=== PATIENT | female | born 1965 | race Caucasian/White ===

== ENCOUNTER 2017-03-28 14:00 | Emergency (ER) | payer OTHER ==
[~2017-03-28] VITALS: Ht 157.5 cm; Wt 106.9 kg
[~2017-03-28 14:00] MED LIST: ACCOLATE20 MG PO; ALBUTEROL17 GM IH; AMBIEN10 M1 PO; AMBIEN10 MG PO; ASPIR-LOW81 MG PO; ASPIRIN81 M1 PO; ATORVASTATIN CA80 MG PO; ATROVENT 00.5 MG/2.5 IH; BUDEPRION XL150 MG PO; CALCIUM600 MG PO; CALTRATE 600600 MG PO; CLONAZEPAM1 MG PO; CLONIDINE HCL0.2 MG PO; CYANOCOBALAM1000 MCG PO; CYMBALTA30 MG PO; CYMBALTA60 MG PO; DILTIAZEM 24HR180 MG PO; DIOVAN HCT 3201 EAC1 PO; DUONEB3 ML; FISH OIL 1,001000 M1 PO; FLAX SEED OIL1 EACH PO; FLONASE16 G1 BOTH NARES; FUROSEMIDE20 MG PO; GABAPENTIN100 MG PO; GUAIFENESIN400 MG PO; K-DUR20 MEQ PO; KLONOPIN0.5 M1 PO; KLOR-CON M2020 MEQ PO; LASIX10 MG PO; LEVOTHROID125 MCG PO; LEVOTHYROXINE125 MCG PO; LIPITOR20 MG PO; MAGNESIUM OXID400 MG PO; MELOXICAM15 MG PO; MUCUS RELIEF400 MG PO; MULTIVITAMIN1 EAC2 PO; MYSOLINE50 MG PO; OXYCODONE HCL5 MG PO; PREDNISONE10 MG PO; PRIMIDONE50 MG PO; PROAIR HFA8.5 GM IH; PROBIOTIC1 EAC1 PO; PROTONIX40 MG PO; PROVENTIL,2.5 MG/3 M IH; PYCNOGENOL PO; RANITIDINE HCL150 MG PO; SPIRIVA1 INHALATI IH; SYMBICORT60 INHALAT; SYMBICORT60 INHALAT IH; THEO-DUR,THEOC300 MG PO; TOPAMAX25 MG PO; TOPIRAMATE25 MG PO; TRAMADOL HCL50 MG PO; ULTRAM50 MG PO; VALSARTAN-HCTZ1 EAC3 PO; VITAMIN B-6100 MG PO; VITAMIN D2000 INTUN PO; VITAMIN D33000 UNIT PO; VITAMIN E400 UNIT PO; VOLTAREN75 MG PO; WELLBUTRIN SR150 MG PO; ZANAFLEX4 M1 PO; ZANTAC150 MG PO; ZESTRIL30 MG PO
[2017-03-28 15:24] LABS: BASOPHIL COUNT 0.1 K/uL (0-0.1); EOSINOPHIL (%) 4.1 % (0-5); EOSINOPHIL COUNT 0.2 K/uL (0-0.3); HEMATOCRIT 44.4 % (36.0-46.0); IMMATURE GRANULOCYTE (%) 0.3 % (0.0-0.7); INSTRUMENT ABS NEUTROPHIL CT 3.3 K/uL; LYMPHOCYTE COUNT 1.7 K/uL (1.0-2.8); MCHC 32.9 G/DL (30.0-36.0); MCV 85.1 FL (83-99); MEAN PLAT.VOLUME 9.5 uM^3 (9.5-12.4); MONOCYTE (%) 9.6 % (3-12); MONOCYTE COUNT 0.6 K/uL (0-0.8); NEUTROPHIL (%) 56.9 % (45-76); NEUTROPHIL COUNT 3.3 K/uL (1.8-6.4); PLATELET COUNT 190 K/uL (156-360); RBC DIS.WIDTH-SD 43.3 % (39-53); RED BLOOD COUNT 5.22 M/uL (3.80-5.20); WHITE BLOOD COUNT 5.9 K/uL (4.1-10.2)
[2017-03-28 15:34] LABS: CHLORIDE 110 mEq/L (99-109); POTASSIUM 4.2 mEq/L (3.7-5.4); SODIUM 137 mEq/L (136-147)
[2017-03-28 15:37] LABS: GLUCOSE 124 mg/dL (70-99)
[2017-03-28 15:38] LABS: ANION GAP 5 MEQ/L (2-14)
[2017-03-28 15:39] LABS: TOTAL BILIRUBIN 0.3 mg/dL (0.0-1.0)
[2017-03-28 15:40] LABS: ALKALINE PHOSPHATASE 92 IU/L (3-129); GFR ESTIMATE (CALCULATED) > 59 mL/min/
[2017-03-28 15:41] LABS: UREA NITROGEN (BUN) 13 mg/dL (9-23)
[2017-03-28 15:47] LABS: TROP-I INTERPRETATION NEGATIVE; TROPONIN-I < 0.01 ng/mL (0.0-0.30)
[2017-03-28] MEDS ORDERED: PREDNISONE50 MG PO (17:25)
[2017-03-28 17:45] VITALS: BP 188/70
== END 2017-03-28 17:45 | disposition home or self-care (01) ==
LOC: EME 14:00
PROVIDERS: Physician Assistant Medical
DX: J45.901 Unspecified asthma with (acute) exacerbation (principal); J44.9 Chronic obstructive pulmonary disease, unspecified; I10 Essential (primary) hypertension; K21.9 Gastro-esophageal reflux disease without esophagitis; F32.9 Major depressive disorder, single episode, unspecified; F41.9 Anxiety disorder, unspecified; F17.200 Nicotine dependence, unspecified, uncomplicated; Z90.49 Acquired absence of other specified parts of digestive tract; Z88.6 Allergy status to analgesic agent
CPT/HCPCS: 71020; 80053; 84484; 85025; 93005; 94640; 94640 76; 99281; 99284; J3475; J7030; J7512

== ENCOUNTER 2017-04-11 17:06 | Emergency (ER) | payer OTHER ==
[~2017-04-11] VITALS: Ht 157.5 cm; Wt 105.1 kg
[~2017-04-11 17:06] MED LIST changes: +PREDNISONE50 MG PO
[2017-04-11 18:56] LABS: HEMATOCRIT 47.8 % (36.0-46.0); MCHC 32.8 G/DL (30.0-36.0); MCV 85.2 FL (83-99); MEAN PLAT.VOLUME 9.3 uM^3 (9.5-12.4); PLATELET COUNT 206 K/uL (156-360); RBC DIS.WIDTH-CV 13.9 % (11.8-14.6); RBC DIS.WIDTH-SD 43.2 % (39-53); RED BLOOD COUNT 5.61 M/uL (3.80-5.20)
[2017-04-11 19:04] LABS: CHLORIDE 110 mEq/L (99-109); POTASSIUM 4.6 mEq/L (3.7-5.4); SODIUM 141 mEq/L (136-147)
[2017-04-11 19:06] LABS: GLUCOSE 96 mg/dL (70-99)
[2017-04-11 19:07] LABS: ANION GAP 8 MEQ/L (2-14)
[2017-04-11 19:10] LABS: GFR ESTIMATE (CALCULATED) > 59 mL/min/
[2017-04-11 19:11] LABS: UREA NITROGEN (BUN) 15 mg/dL (9-23)
[2017-04-11 21:01] LABS: D-DIMER ELISA < 150.00 ng/mLDDU (<230)
[2017-04-11 21:11] LABS: TROP-I INTERPRETATION NEGATIVE; TROPONIN-I < 0.01 ng/mL (0.0-0.30)
[2017-04-11] MEDS ORDERED: ZITHROMAX Z-PA250 MG PO (23:14)
[2017-04-11 23:57] VITALS: BP 158/71
== END 2017-04-12 | disposition home or self-care (01) ==
LOC: EME 17:06
PROVIDERS: Emergency Medicine
DX: J45.901 Unspecified asthma with (acute) exacerbation (principal); J44.0 Chronic obstructive pulmonary disease with (acute) lower respiratory infection; J20.9 Acute bronchitis, unspecified; I10 Essential (primary) hypertension; E66.01 Morbid (severe) obesity due to excess calories; Z68.41 Body mass index [BMI] 40.0-44.9, adult; Z79.82 Long term (current) use of aspirin; F17.200 Nicotine dependence, unspecified, uncomplicated
CPT/HCPCS: 71020; 80048; 84484; 85027; 85379; 93005; 94640; 99281; 99285; J2270; J2405

== ENCOUNTER 2017-09-05 02:21 | Emergency (ER) | payer OTHER ==
[~2017-09-05] VITALS: Ht 157.5 cm; Wt 110.8 kg
[~2017-09-05 02:21] MED LIST changes: +ZITHROMAX Z-PA250 MG PO
[2017-09-05 02:42] LABS: APPEARANCE CLEAR ((CLEAR)); BILIRUBIN NEGATIVE; BLOOD NEGATIVE; COLOR YELLOW ((YELLOW)); GLUCOSE (STRIP) NEGATIVE; KETONES NEGATIVE; LEUKOCYTES NEGATIVE; NITRITE NEGATIVE; PROTEIN (STRIP) NEGATIVE; SPECIFIC GRAVITY 1.016 (1.000-1.030); UCUL ADDED? NO; UROBILINOGEN 0.2 MG/DL (0.2-1.0)
[2017-09-05 02:51] LABS: HEMOGLOBIN 17.2 G/DL (11.9-15.5); MCH 28.5 PG (29.0-34.0); MCHC 33.7 G/DL (30.0-36.0); MCV 84.6 FL (83-99); PLATELET COUNT 263 K/uL (156-360); RBC DIS.WIDTH-CV 14.4 % (11.8-14.6); RBC DIS.WIDTH-SD 43.6 % (39-53); RED BLOOD COUNT 6.03 M/uL (3.80-5.20); WHITE BLOOD COUNT 7.9 K/uL (4.1-10.2)
[2017-09-05 03:03] LABS: ALBUMIN 4.1 g/dL (3.2-4.8); CHLORIDE 109 mEq/L (99-109); POTASSIUM 3.3 mEq/L (3.7-5.4); SODIUM 139 mEq/L (136-147)
[2017-09-05 03:06] LABS: GLUCOSE 190 mg/dL (70-99); TOTAL PROTEIN 6.9 g/dL (6.4-8.3)
[2017-09-05 03:08] LABS: TOTAL BILIRUBIN 0.3 mg/dL (0.0-1.0)
[2017-09-05 03:09] LABS: ALKALINE PHOSPHATASE 111 IU/L (3-129); CREATININE 0.8 mg/dL (0.6-1.3); GFR ESTIMATE (CALCULATED) > 59 mL/min/
[2017-09-05 03:10] LABS: UREA NITROGEN (BUN) 14 mg/dL (9-23)
[2017-09-05 03:11] LABS: AST (GOT) 20 IU/L (2-34)
[2017-09-05 03:12] LABS: ALT (GPT) 20 IU/L (3-49)
[2017-09-05 03:13] LABS: LIPASE 39 U/L (1.0-51.0)
[2017-09-05 03:19] LABS: QUANTITATIVE HCG < 4.0 MIU/ML
[2017-09-05] MEDS ORDERED: BENTYL20 MG PO (05:58)
[2017-09-05] MEDS ORDERED: ZOFRAN4 MG SL (05:58)
[2017-09-05 06:08] LABS: TROP-I INTERPRETATION NEGATIVE; TROPONIN-I < 0.01 ng/mL (0.0-0.30)
[2017-09-05 06:32] VITALS: BP 166/91
== END 2017-09-05 06:47 | disposition home or self-care (01) ==
LOC: EME 02:21
PROVIDERS: Physician Assistant
DX: R10.11 Right upper quadrant pain (principal); K76.0 Fatty (change of) liver, not elsewhere classified; R16.0 Hepatomegaly, not elsewhere classified; K21.9 Gastro-esophageal reflux disease without esophagitis; J44.9 Chronic obstructive pulmonary disease, unspecified; I10 Essential (primary) hypertension; F41.9 Anxiety disorder, unspecified; F32.9 Major depressive disorder, single episode, unspecified; E66.01 Morbid (severe) obesity due to excess calories; Z68.41 Body mass index [BMI] 40.0-44.9, adult; Z90.49 Acquired absence of other specified parts of digestive tract; F17.200 Nicotine dependence, unspecified, uncomplicated
CPT/HCPCS: 74177; 80053; 81003; 82948; 83690; 84484; 84702; 85027; 93005; J2270; J2405; J3010; J7030

== ENCOUNTER 2017-10-15 12:17 | Emergency (ER) | payer OTHER ==
[~2017-10-15] VITALS: Ht 157.5 cm; Wt 115.3 kg
[~2017-10-15 12:17] MED LIST changes: +BENTYL20 MG PO; +ZOFRAN4 MG SL
[2017-10-15 12:59] LABS: HEMATOCRIT 46.2 % (36.0-46.0); HEMOGLOBIN 15.3 G/DL (11.9-15.5); MCH 28.8 PG (29.0-34.0); MCHC 33.1 G/DL (30.0-36.0); MCV 86.8 FL (83-99); PLATELET COUNT 207 K/uL (156-360); RBC DIS.WIDTH-CV 14.6 % (11.8-14.6); RBC DIS.WIDTH-SD 46.4 % (39-53); RED BLOOD COUNT 5.32 M/uL (3.80-5.20); WHITE BLOOD COUNT 6.6 K/uL (4.1-10.2)
[2017-10-15 13:09] LABS: CHLORIDE 106 mEq/L (99-109); POTASSIUM 3.9 mEq/L (3.7-5.4); SODIUM 139 mEq/L (136-147)
[2017-10-15 13:10] LABS: GLUCOSE 188 mg/dL (70-99)
[2017-10-15 13:14] LABS: CREATININE 0.7 mg/dL (0.6-1.3); GFR ESTIMATE (CALCULATED) > 59 mL/min/
[2017-10-15 13:15] LABS: UREA NITROGEN (BUN) 22 mg/dL (9-23)
[2017-10-15 14:02] LABS: APPEARANCE CLEAR ((CLEAR)); BILIRUBIN NEGATIVE; BLOOD NEGATIVE; COLOR YELLOW ((YELLOW)); GLUCOSE (STRIP) NEGATIVE; KETONES NEGATIVE; LEUKOCYTES NEGATIVE; NITRITE NEGATIVE; PROTEIN (STRIP) NEGATIVE; SPECIFIC GRAVITY 1.029 (1.000-1.030); UCUL ADDED? NO; UROBILINOGEN 0.2 MG/DL (0.2-1.0)
[2017-10-15 14:49] LABS: ALBUMIN 3.8 g/dL (3.2-4.8)
[2017-10-15 14:52] LABS: TOTAL PROTEIN 6.5 g/dL (6.4-8.3)
[2017-10-15 14:54] LABS: TOTAL BILIRUBIN 0.3 mg/dL (0.0-1.0)
[2017-10-15 14:55] LABS: ALKALINE PHOSPHATASE 94 IU/L (3-129)
[2017-10-15 14:58] LABS: ALT (GPT) 18 IU/L (3-49); AST (GOT) 17 IU/L (2-34); DIRECT BILIRUBIN 0.1 mg/dL (0.0-0.3)
[2017-10-15 14:59] LABS: LIPASE 18 U/L (1.0-51.0)
[2017-10-15] MEDS ORDERED: BENTYL10 MG PO (16:33)
[2017-10-15] MEDS ORDERED: ZOFRAN4 MG SL (16:33)
[2017-10-15 16:42] VITALS: BP 150/86
== END 2017-10-15 16:44 | disposition home or self-care (01) ==
LOC: EME 12:17
DX: R10.30 Lower abdominal pain, unspecified (principal); R39.15 Urgency of urination; K76.0 Fatty (change of) liver, not elsewhere classified; Z87.440 Personal history of urinary (tract) infections; Z90.49 Acquired absence of other specified parts of digestive tract; F17.200 Nicotine dependence, unspecified, uncomplicated; J44.9 Chronic obstructive pulmonary disease, unspecified; I10 Essential (primary) hypertension; F32.9 Major depressive disorder, single episode, unspecified; K21.9 Gastro-esophageal reflux disease without esophagitis; F41.9 Anxiety disorder, unspecified; Z79.82 Long term (current) use of aspirin
CPT/HCPCS: 74177; 80048; 80076; 81003; 83690; 85027; 99281; 99284; J1885

== ENCOUNTER 2018-01-13 18:24 | Emergency (ER) | payer OTHER ==
[~2018-01-13 18:24] MED LIST changes: +BENTYL10 MG PO
== END 2018-01-13 19:00 | disposition left against medical advice (07) ==
LOC: EME 18:24
DX: H92.01 Otalgia, right ear (principal); Z53.21 Procedure and treatment not carried out due to patient leaving prior to being seen by health care provider